=== PATIENT | male | born 1985 | race Caucasian/White ===

== ENCOUNTER 2017-07-05 19:39 | Emergency (ER) | payer MEDICAID ==
[~2017-07-05] VITALS: Ht 167.6 cm; Wt 59.0 kg
[2017-07-05 20:08] VITALS: BP 123/74
[2017-07-06] MEDS ORDERED: IBUPROFEN 600MG TABLET PO ONE (02:30)
== END 2017-07-06 02:41 | disposition home or self-care (01) ==
LOC: ER 22:16
DX: R68.84 Jaw pain (principal); J45.909 Unspecified asthma, uncomplicated; F17.200 Nicotine dependence, unspecified, uncomplicated; F12.10 Cannabis abuse, uncomplicated
CPT/HCPCS: 99282

== ENCOUNTER 2017-07-05 23:25 | Emergency (ER) | payer MEDICAID | END 2017-07-06 07:30 | disposition left against medical advice (07) | LOC: ER 23:25 | DX: K08.89 Other specified disorders of teeth and supporting structures (principal) | CPT/HCPCS: 99281 ==